=== PATIENT | male | born 1985 | race Caucasian/White ===

== ENCOUNTER 2018-08-01 05:51 | Inpatient (IN) | payer MEDICAID ==
[~2018-08-01] VITALS: Ht 190.5 cm; Wt 98.8 kg
--- NOTE | 2018-08-01 19:35 | NUR ---
RECEIVED VIA STRETCHER ESCORTED BY EMS. ALERT/ORIENTED X4, ABMULATED TO BED WITH STEADY GAIT. DENIES PAIN. 20G IV IN L FA INTACT SL. RR 19 EVEN U/L ON ROOM AIR. VITAL SIGNS: B/P IN RT ARM 184/120; LT ARM 186/126; HR 118, RR 19; 02 SAT 97%. REQUESTED SOME ICE WATER AND ANOTHER BLANKET. STATED HE WAS COLD. ORIENTED TO ROOM AND CALL LIGHT.
[2018-08-01] MEDS ORDERED: METOPROLOL TART50 MG PO (20:30)
--- NOTE | 2018-08-01 20:45 | NUR ---
CALLED DR VILLA FOR ORDERS.
--- NOTE | 2018-08-01 21:28 | NUR ---
ADMIN B/P PO MEDS ORDERED BY DR VILLA. NO OTHER NEEDS VOICED. FAMILY MEMBER PRESENT IN ROOM.
--- NOTE | 2018-08-01 21:35 | NUR ---
OBTAINED URINE SAMPLE FOR LAB ORDERED.
[2018-08-01 22:10] VITALS: BP 184/120
[2018-08-01 23:54] VITALS: BP 152/89
--- NOTE | 2018-08-02 01:40 | NUR ---
AWAKE. REQUESTED A SODA.
[2018-08-02 04:09] VITALS: BP 161/93
[2018-08-02 04:23] VITALS: BP 186/126; BMI 30.8
[2018-08-02] MEDS ORDERED: NORVASC10 MG PO (04:38)
[2018-08-02] MEDS ORDERED: HYDRALAZINE HC100 MG PO (04:39)
--- NOTE | 2018-08-02 05:00 | NUR ---
AMBULATING IN HALLWAY WITH FAMILY MEMBER. DENIES ANY NEEDS OR DISCOMFORTS.
[2018-08-02 06:52] LABS: BASOPHILS 0.4 % (0-2); EOSINOPHILS 5.5 % (0-7); HEMATOCRIT 28.5 % (42.0-54.0); HEMOGLOBIN 9.8 g/dL (13.5-17.5); IMMATURE GRANULOCYTES 1.3 % (0-5); LYMPHOCYTES 7.7 % (15-50); MCH 27.5 pg (26.0-34.0); MCHC 34.4 g/dL (31.0-37.0); MCV 80.1 fL (80.0-100.0); MEAN PLATELET VOLUME 10.7 fL (7.4-10.4); MONOCYTES 13.2 % (2-11); NEUTROPHILS 71.9 % (40-80); PLATELET COUNT 214 10x3/uL (130-400); RBC 3.56 10x6/uL (4.20-6.10); RDW 13.5 % (11.5-14.5); WBC 11.9 10x3/uL (4.8-10.8)
[2018-08-02 07:31] LABS: ALBUMIN 2.2 g/dL (3.4-5.0); ANION GAP 21.1 mmol/L (8-16); BILIRUBIN - TOTAL 0.47 mg/dL (0.2-1.3); CALCIUM 7.8 mg/dL (8.5-10.1); CARBON DIOXIDE 15.1 mmol/L (21.0-32.0); CREATININE - SERUM 7.6 mg/dL (0.6-1.3); POTASSIUM - SERUM 3.2 mmol/L (3.5-5.1); URIC ACID 11.8 mg/dL (2.6-7.2)
--- NOTE | 2018-08-02 08:43 | NUR ---
RESUMING PT CARE, PT IS LAYING IN BED ALERT AND ORIENTED X4, BED IS IN LOWEST POSITION WITH RAILS UP X1, CALL LIGHT IN REACH. WILL CONTINUE TO MONITOR AND FOLLOW PLAN OF CARE.
--- NOTE | 2018-08-02 09:46 | NUR ---
I have reviewed this patient and I concur with the Shift Assessment completed by the Licensed Practical Nurse today this shift.
[2018-08-02 11:25] LABS: % SATURATION 14 % (15-55); IRON 22 ug/dl (35-150); TOTAL IRON BIND CAPACITY 155 ug/dl (260-445); UNSAT IRON BIND CAPACITY 133 ug/dl (150-375)
[2018-08-02 15:52] VITALS: BP 157/106
--- NOTE | 2018-08-02 19:15 | NUR ---
ALERT/ORIENTED X4. DENIES PAIN OR ANY NEEDS. RR 20 EVEN U/L. IV IN L FA INTACT SL. BED IS LOW WITH CL IN REACH.
--- NOTE | 2018-08-02 21:40 | NUR ---
DR VILLA IN ROOM TALKING TO PATIENT AND HIS MOTHER.
[2018-08-02 21:53] VITALS: BP 186/111
--- NOTE | 2018-08-02 22:40 | NUR ---
RETURNED TO ROOM AFTER APPROX 1 HOUR. STATED HE AND HIS MOTHER WERE VERY UPSET ABOUT BEING INFORMED ABOUT THE STATE OF HIS KIDNEYS BY DR VILLA. ADMIN HIS SCHED PO MEDS.
[2018-08-03] VITALS: BP 154/90
[2018-08-03 01:45] LABS: CREATININE - URINE 99.8 mg/dL (30-125); PROTEIN - URINE 233.5 mg/dL (0.0-11.9)
[2018-08-03 01:49] LABS: UDS - AMPHET NEGATIVE QUAL (NEGATIVE); UDS - BARB NEGATIVE QUAL (NEGATIVE); UDS - BENZO NEGATIVE QUAL (NEGATIVE); UDS - COCAINE NEGATIVE QUAL (NEGATIVE); UDS - OPIATE NEGATIVE QUAL (NEGATIVE); UDS - PCP NEGATIVE QUAL (NEGATIVE); UDS - THC NEGATIVE QUAL (NEGATIVE)
--- NOTE | 2018-08-03 04:00 | NUR ---
PLACED BACK ON TELEMETRY AFTER SHOWER. DENIES ANY NEEDS.
[2018-08-03 05:47] VITALS: BP 158/85
[2018-08-03 06:12] LABS: BASOPHILS 0.3 % (0-2); EOSINOPHILS 4.5 % (0-7); HEMOGLOBIN 9.3 g/dL (13.5-17.5); IMMATURE GRANULOCYTES 0.9 % (0-5); LYMPHOCYTES 6.2 % (15-50); MCH 27.4 pg (26.0-34.0); MCHC 34.4 g/dL (31.0-37.0); MCV 79.6 fL (80.0-100.0); MEAN PLATELET VOLUME 10.5 fL (7.4-10.4); MONOCYTES 12.3 % (2-11); NEUTROPHILS 75.8 % (40-80); PLATELET COUNT 210 10x3/uL (130-400); RBC 3.39 10x6/uL (4.20-6.10); RDW 13.3 % (11.5-14.5)
[2018-08-03 06:28] LABS: ANION GAP 20.6 mmol/L (8-16); CALCIUM 7.9 mg/dL (8.5-10.1); CARBON DIOXIDE 15.8 mmol/L (21.0-32.0); CREATININE - SERUM 8.3 mg/dL (0.6-1.3); POTASSIUM - SERUM 3.4 mmol/L (3.5-5.1)
[2018-08-03 10:19] LABS: FOLATE (FOLIC ACID) - SERUM 3.5 ng/mL (>3.0)
--- NOTE | 2018-08-03 10:45 | NUR ---
PT REPORTS THAT SALINE LOCK IN LEFT ARM HAS NOT BEEN USED SINCE TUESDAY. BLOOD NOTED IN J LOOP. IV DCD WITH CATH TIP INTACT PER MAX OMAIRA NPC ADNS. 20G PLACED IN LEFT FOREARM PER MAX OMAIRA. PT TOLERATED WELL. NS HUNG AT 10ML/HR IN ORDER TO INFUSE SECONDARY MEDS.
[2018-08-03 15:34] VITALS: BP 149/97
--- NOTE | 2018-08-03 19:49 | NUR ---
IV AT 50....NO NOTE ON WHY ITS NOT RUNNING AT 125...LCTA SKIN WARM AND DRY INCRESED IV RATE TO 125/HR
[2018-08-03 20:00] VITALS: BP 195/109
[2018-08-03 21:08] LABS: APPEARANCE CLEAR (CLEAR); BILIRUBIN NEGATIVE (NEGATIVE); COLOR YELLOW (YELLOW); GLUCOSE NEGATIVE (NEGATIVE); KETONE NEGATIVE (NEGATIVE); NITRITE NEGATIVE (NEGATIVE); PROTEIN 1+ mg/dL (NEGATIVE); SPECIFIC GRAVITY 1.015 (1.005-1.020); UROBILINOGEN NORMAL (NORMAL)
[2018-08-04] VITALS: BP 159/93
[2018-08-04 04:00] VITALS: BP 158/88
--- NOTE | 2018-08-04 04:41 | NUR ---
I have reviewed this patient and I concur with the Shift Assessment completed by the Licensed Practical Nurse today this shift.
[2018-08-04 07:29] LABS: HEPATITIS C ANTIBODY <0.1 S/CO RAT (0.0-0.9)
[2018-08-04 08:05] LABS: ANION GAP 19.4 mmol/L (8-16); CALCIUM 8.1 mg/dL (8.5-10.1); CARBON DIOXIDE 17.8 mmol/L (21.0-32.0); POTASSIUM - SERUM 3.2 mmol/L (3.5-5.1)
--- NOTE | 2018-08-04 08:30 | NUR ---
PT RESTING IN BED. SHIFT ASSESSMENT PERFORMED. AM MEDICATIONS GIVEN ORDERED. DENIES PAIN AT THIS TIME, DENIES ANY OTHER NEEDS AT THIS TIME, WILL CONT TO FOLLOW PLAN OF CARE
[2018-08-04 08:37] LABS: BASOPHILS 0.3 % (0-2); EOSINOPHILS 7.8 % (0-7); HEMATOCRIT 25.6 % (42.0-54.0); HEMOGLOBIN 8.9 g/dL (13.5-17.5); IMMATURE GRANULOCYTES 0.8 % (0-5); LYMPHOCYTES 11.3 % (15-50); MCH 27.7 pg (26.0-34.0); MCHC 34.8 g/dL (31.0-37.0); MCV 79.8 fL (80.0-100.0); MEAN PLATELET VOLUME 11.2 fL (7.4-10.4); MONOCYTES 5.9 % (2-11); NEUTROPHILS 73.9 % (40-80); PLATELET COUNT 206 10x3/uL (130-400); RBC 3.21 10x6/uL (4.20-6.10); RDW 13.3 % (11.5-14.5); WBC 11.6 10x3/uL (4.8-10.8)
[2018-08-04 10:21] VITALS: BP 148/45
[2018-08-04 11:30] LABS: MAGNESIUM - SERUM 2.3 mg/dL (1.8-2.4); PHOSPHOROUS 5.9 mg/dL (2.5-4.9)
--- NOTE | 2018-08-04 15:13 | EC ---
PATIENT:TEREZA SCHOFIELD DATE OF SERVICE: 08/01/18 SEX: M MEDICAL RECORD: [id number] DATE OF : [birth year] LOCATION:D.M2 D.213 AGE OF PATIENT: 32 ADMISSION DATE: 08/01/18 REFERRING PHYSICIAN: INTERPRETING PHYSICIAN: ARIA ZUNIGA MD ECHOCARDIOGRAM REPORT ECHO CHARGES 4 ECHO COMPLETE Date: 08/02/18 CLINICAL DIAGNOSIS: CHF ECHOCARDIOGRAPHIC MEASUREMENTS (adult normal given) AC root (d.<3.7cm) 3.0 cm LV Septum d (<1.2 cm> 1.3 cm Valve Excursion 2.2 cm LV Septum (systole) 1.8 cm Left Atria (s.<4.0cm> 3.7 cm LVPW d(<1.2cm) 1.3 cm RV (d.<2.3cm) 2.5 cm LVPW (sytole) 1.9 cm LV diastole(<5.6CM) 5.0 cm MV E-F(>70mm/sec) cm LV systole 3.6 cm LVOT Diameter 2.0 cm MV exc.(>10mm) cm Est.ejection fraction (50-75%) % DOPPLER: LVIT cm/sec A 69.0 cm/sec E 140 cm/sec LA cm/sec RVSP 66.3 mmHg LVOT 112 cm/sec AOP1/2T m/s Asc. Ao 173 cm/sec RVOT 81.0 cm/sec RA cm/sec PA 119 cm/sec AV Gradient Peak 12.0 mmHg AV Mean 4.9 mmHg AV Area 2.4 cm MV Gradient Peak 120 mmHg MV Mean 3.3 mmHg MV Area cm COMMENTS: Melter Loader: Ronald MORALESOE Ware Dresser: 1 Dr. Zuniga TAPE# PACS Pericardial Effusion N DATE OF SERVICE: 08/02/2018 PROCEDURE: Echocardiogram. FINDINGS: 1. Left ventricular chamber size is within normal limits. Left ventricular systolic function is normal. Overall ejection fraction estimated at 60%. 2. Left atrium is within normal limits at 3.7 cm. Right atrium and right ventricular chamber sizes are mildly dilated. 3. Valvular structures have normal structure and motion. ECHOCARDIOGRAM REPORT [id number] TEREZA SCHOFIELD 4. Doppler interrogation reveals moderate mitral regurgitation, moderate tricuspid regurgitation, no other valvular insufficiency or stenosis. Pulmonary systolic pressure is elevated estimated 66 mmHg. 5. No evidence of pericardial effusion or left ventricular thrombus. TRANSINT:[id number] Voice Confirmation ID: [id number] DOCUMENT ID: [id number] ARIA ZUNIGA MD at 1513 CC: [id number] DICTATION DATE: 08/02/18 1547 REDUCING SALON ATTENDANT: 08/02/18 1557 ADM IN [facility] [address] [id number]
[2018-08-04 16:45] VITALS: BP 162/90
--- NOTE | 2018-08-04 18:32 | NUR ---
SPEAKING WITH PT, ADVISED PT THAT HE WILL NEED TEMPORARY ACCESS FOR DIALYSIS. ORDER RECIEVED TO CONTACT IVR TO PLACE ACCESS.
[2018-08-04 21:30] VITALS: BP 171/99
[2018-08-04 23:55] VITALS: BP 160/94
[2018-08-05] VITALS (10 sets, daily range): BP systolic 144–200; BP diastolic 87–116
--- NOTE | 2018-08-05 00:34 | NUR ---
PT COMPLAINING OF SHORTNESS OF BREATH. O2 SAT-88%. PLACED PT ON 2L NC. CALLED RESPIRATORY KATHERINE RT BUMPED PT UP TO 4L. PT HAS FINE CRACKLES IN LUNGS. STOPPED IV FLUIDS. PT SITTING UP ON SIDE OF BED TAKING DEEP BREATHS. MOTHER AT BEDSIDE. WILL CONTINUE TO MONITOR.
--- NOTE | 2018-08-05 01:00 | NUR ---
CALLED DR. VILLA REGARDING PT O2 AND SOB. STAT ORDERS FOR CHEST X-RAY AND PRO-BNP ORDERED. PT SITTING ON SIDE OF BED TRIPOD BREATHING. PT BEHAVIOR ANXIOUS. MOTHER AT BEDSIDE. WILL CONTINUE TO MONITOR.
[2018-08-05 01:38] LABS: BASOPHILS 0.3 % (0-2); EOSINOPHILS 5.6 % (0-7); HEMATOCRIT 27.8 % (42.0-54.0); HEMOGLOBIN 9.6 g/dL (13.5-17.5); IMMATURE GRANULOCYTES 1.1 % (0-5); LYMPHOCYTES 10.9 % (15-50); MCH 27.6 pg (26.0-34.0); MCHC 34.5 g/dL (31.0-37.0); MCV 79.9 fL (80.0-100.0); MEAN PLATELET VOLUME 10.5 fL (7.4-10.4); MONOCYTES 6.1 % (2-11); PLATELET COUNT 213 10x3/uL (130-400); RBC 3.48 10x6/uL (4.20-6.10); RDW 13.3 % (11.5-14.5); WBC 12.8 10x3/uL (4.8-10.8)
[2018-08-05 01:42] LABS: INR 1.25 (0.85-1.17); PROTIME 15.2 SECONDS (11.6-15.0)
[2018-08-05 01:53] LABS: ANION GAP 16.5 mmol/L (8-16); CARBON DIOXIDE 21.1 mmol/L (21.0-32.0); CREATININE - SERUM 9.3 mg/dL (0.6-1.3); POTASSIUM - SERUM 3.6 mmol/L (3.5-5.1)
--- NOTE | 2018-08-05 03:19 | NUR ---
PT RESTING COMFORTABLY WITH EYES CLOSED. RR EVEN AND UNLABORED. NO S/S OF DISTRESS. BED LOW, CALL LIGHT WITHIN REACH, MOTHER AT BEDSIDE. WILL CONTINUE TO MONITOR
--- NOTE | 2018-08-05 07:05 | NUR ---
PER JG SPENCER APRN ORDER ABG'S. ORDER NOTED.
--- NOTE | 2018-08-05 08:31 | NUR ---
RESUMING PT CARE, PT SITTING UP IN BED ALERT AND ORIENTED X4, CALL LIGHT IN REACH. IS SCHEDULED FOR DIALYSIS TODAY. MOTHER IS AT BEDSIDE. WILL CONTINUE TO MONITOR AND FOLLOW PLAN OF CARE.
--- NOTE | 2018-08-05 08:53 | NUR ---
SPOKE WITH MARY LEBRON APRN AND SHE TOLD ME TO HOLD ALL MORNING MEDS DUE TO PT HAVING FIRST DIALYSIS TODAY. MEDS HELD. CALL LIGHT IN REACH, WILL CONTINUE TO MONITOR.
--- NOTE | 2018-08-05 09:37 | NUR ---
I have reviewed this patient and I concur with the Shift Assessment completed by the Licensed Practical Nurse today this shift.
--- NOTE | 2018-08-05 14:47 | NUR ---
PT TAKEN FROM DIALYSIS TO CT, CT IS TO TAKE PT TO ROOM CV02 WHEN DONE.
--- NOTE | 2018-08-05 15:30 | NUR ---
PATIENT FROM ROOM 2137 PER WHEELCHAIR. COMES FROM RADIOLOGY POST VQ SCAN. AWAKE AND ALERT SKIN WARM AND DRY. AMBULATED TO HOSPITAL BED. IV LEFT FOREARM SALINE LOCKED. DENIES ANY PAIN OR SHORTNESS OF BREATH. MOTHER HERE. DR. BLANCO NOTIFIED OF CONSULT.
--- NOTE | 2018-08-05 17:00 | NUR ---
SUPER TRAY SERVED ATE WELL. NO SHORTNESS OF BREATH WHILE EATING. DR. BLANCO HERE
--- NOTE | 2018-08-05 17:30 | NUR ---
DR. VILLA CALLED ABOUT BLOOD PRESSURE OVER 190/110. ORDERS RECEIVED FOR CLONIDINE 0.2 MG PO NOW.
--- NOTE | 2018-08-05 18:30 | NUR ---
AMBULATED TO BATHROOM. VOIDED. IV PULLED OUT. RESTARTED IN RIGHT WRIST WITH 20 GAUGE X 1 STICK. INFUSING WITH D51/2NS WITH NA BICAR AT 50 ML HOUR. PATIENT TOLERATED WELL.
--- NOTE | 2018-08-05 19:00 | NUR ---
ASSESSMENT DONE SEE FLOW SHEET. INDEPENDENT BED BATH GIVEN. COMPLETE LINEN CHANGE. IV SITES FLUSED. VSS NO SINGS OF ACUTE DISTRESS NOTED.
--- NOTE | 2018-08-05 22:00 | NUR ---
PT DESATING TO 86. NC APPLIED 4LPM. O2 SAT 94. PT COMPLAINS OF SOB. WILL CONTINUE TO MONITOR.
--- NOTE | 2018-08-05 23:00 | NUR ---
REASSESSMENT DONE SEE FLOW SHEET. PT LUNGS SOUNDS BILATERALLY CRACKLES. NC 4LPM. DR HALLIE IRELAND WILL CONTINUE TO MONITOR.
[2018-08-06] VITALS (24 sets, daily range): BP systolic 126–169; BP diastolic 75–98
--- NOTE | 2018-08-06 01:00 | NUR ---
PT O2 SAT 88%. HIGH FLOW NC APPLIED 8LPM. DR HALLIE IRELAND. WILL CONTINUE TO MONITOR.
--- NOTE | 2018-08-06 03:00 | NUR ---
REASSESSMENT DONE SEE FLOW SHEET. VSS WILL CONTINUE TO MONITOR.
--- NOTE | 2018-08-06 05:00 | NUR ---
IO COLLECTED. DAILY WEIGHT COLLECTED. BLOOD DRAWN WATER PROVIDED. VSS.
[2018-08-06 05:26] LABS: BASOPHILS 0.4 % (0-2); EOSINOPHILS 5.4 % (0-7); HEMATOCRIT 23.9 % (42.0-54.0); HEMOGLOBIN 8.1 g/dL (13.5-17.5); IMMATURE GRANULOCYTES 0.8 % (0-5); MCH 27.2 pg (26.0-34.0); MCHC 33.9 g/dL (31.0-37.0); MCV 80.2 fL (80.0-100.0); MONOCYTES 15.3 % (2-11); NEUTROPHILS 70.1 % (40-80); RBC 2.98 10x6/uL (4.20-6.10); RDW 13.4 % (11.5-14.5); WBC 10.6 10x3/uL (4.8-10.8)
[2018-08-06 05:27] LABS: PLATELET COUNT 170 10x3/uL (130-400)
[2018-08-06 05:46] LABS: ANION GAP 15.2 mmol/L (8-16); CALCIUM 7.6 mg/dL (8.5-10.1); CARBON DIOXIDE 25.3 mmol/L (21.0-32.0); CREATININE - SERUM 7.7 mg/dL (0.6-1.3); POTASSIUM - SERUM 3.5 mmol/L (3.5-5.1)
--- NOTE | 2018-08-06 14:14 | NUR ---
SPO2 98% ON 7 LPM HFC. DECREASED TO 4LPM HFC.
--- NOTE | 2018-08-06 14:14 | NUR ---
SPO2 96% ON 4LPM HFC. DECREASED TO 2 LPM HFC.
[2018-08-07] VITALS (21 sets, daily range): BP systolic 119–152; BP diastolic 67–104
[2018-08-07 04:58] LABS: BASOPHILS 0.3 % (0-2); EOSINOPHILS 7.2 % (0-7); HEMATOCRIT 24.7 % (42.0-54.0); HEMOGLOBIN 8.3 g/dL (13.5-17.5); IMMATURE GRANULOCYTES 0.5 % (0-5); LYMPHOCYTES 9.1 % (15-50); MCH 26.9 pg (26.0-34.0); MCHC 33.6 g/dL (31.0-37.0); MCV 80.2 fL (80.0-100.0); MEAN PLATELET VOLUME 10.7 fL (7.4-10.4); MONOCYTES 11.5 % (2-11); NEUTROPHILS 71.4 % (40-80); PLATELET COUNT 178 10x3/uL (130-400); RBC 3.08 10x6/uL (4.20-6.10); RDW 13.4 % (11.5-14.5); WBC 9.7 10x3/uL (4.8-10.8)
[2018-08-07 05:09] LABS: ANION GAP 15.1 mmol/L (8-16); CARBON DIOXIDE 25.4 mmol/L (21.0-32.0); CREATININE - SERUM 9.1 mg/dL (0.6-1.3); MAGNESIUM - SERUM 2.2 mg/dL (1.8-2.4); PHOSPHOROUS 6.8 mg/dL (2.5-4.9); POTASSIUM - SERUM 3.5 mmol/L (3.5-5.1)
--- NOTE | 2018-08-07 08:20 | NUR ---
PT TO IMAGING FOR CT
--- NOTE | 2018-08-07 08:59 | NUR ---
Nutrition follow up: Pt is NPO today for biopsy Previously on Renal diet with 80,50,25% intake of meals yesterday Reviewed chart RD following
[2018-08-07 09:10] LABS: INR 1.25 (0.85-1.17); PROTIME 15.1 SECONDS (11.6-15.0)
[2018-08-07 10:11] LABS: ANTI-STREPTOLYSIN O 81.9 IU/mL (0.0-200.0)
--- NOTE | 2018-08-07 12:35 | NUR ---
DIALYSIS NURSE AT BEDSIDE FOR TREATMENT.
--- NOTE | 2018-08-07 15:15 | NUR ---
DIALYSIS COMPLETED. DUE TO LATE TIME OF DAY, RENAL BIOPSY RESCHEDULED TO TOMORROW.
[2018-08-08] VITALS (23 sets, daily range): BP systolic 131–155; BP diastolic 75–99
[2018-08-08 08:32] LABS: BASOPHILS 0.4 % (0-2); EOSINOPHILS 8.4 % (0-7); HEMATOCRIT 29.3 % (42.0-54.0); HEMOGLOBIN 9.9 g/dL (13.5-17.5); IMMATURE GRANULOCYTES 0.3 % (0-5); LYMPHOCYTES 9.3 % (15-50); MCH 27.2 pg (26.0-34.0); MCHC 33.8 g/dL (31.0-37.0); MCV 80.5 fL (80.0-100.0); MEAN PLATELET VOLUME 10.5 fL (7.4-10.4); MONOCYTES 10.3 % (2-11); NEUTROPHILS 71.3 % (40-80); RBC 3.64 10x6/uL (4.20-6.10); RDW 13.3 % (11.5-14.5); WBC 7.8 10x3/uL (4.8-10.8)
[2018-08-08 08:38] LABS: PLATELET COUNT 226 10x3/uL (130-400)
[2018-08-08 08:39] LABS: INR 1.2 (0.85-1.17); PROTIME 14.7 SECONDS (11.6-15.0)
[2018-08-08 11:00] LABS: ACLA - IGG AB <9 GPL U/mL (0-14); ACLA - IGM AB <9 MPL U/mL (0-12)
--- NOTE | 2018-08-08 11:17 | NUR ---
PT RETURNED FROM I.R.
[2018-08-08 13:13] LABS: ANA REFLEX - DIRECT Negative (Negative)
--- NOTE | 2018-08-08 14:44 | NUR ---
DIALYSIS IN PROGRESS. PT DENIES NEEDS. CALL LIGHT IN REACH.
--- NOTE | 2018-08-08 15:27 | NUR ---
REPORT CALLED TO LES ALLEN. PT GOING TO ROOM 2100.
[2018-08-08 15:52] LABS: HEMATOCRIT 28.4 % (42.0-54.0); HEMOGLOBIN 9.6 g/dL (13.5-17.5)
--- NOTE | 2018-08-08 17:11 | NUR ---
RECEIVED PATIENT TO ROOM 2105 AT 1708. PATIENT ALERT/ORIENTED. AMBULATORY. PATIENT BROUGHT OVER VIA WHEELCHAIR. RESP EVEN AND UNLABORED. PATIENT WITH BUMEX INFUSING ORDERED. PATIENT DENIES NEEDS. DENIES PAIN. PATIENTS MOM AT BEDSIDE WITH HIM. PATIENT STATES HE IS EXCITED TO BE OUT OF ICU SO HE CAN WALK AROUND. NO DISTRESS. ORIENTED TO ROOM. CALL LIGHT WITHIN REACH. NO DISTRESS.
--- NOTE | 2018-08-08 18:41 | NUR ---
SITTING IN BED WITH EYES OPEN. ATTENTION TOWARD TELEVISION. CALL LIGHT WITHIN REACH. NO DISTRESS. FOR HD PLACEMENT IN AM.
--- NOTE | 2018-08-08 20:00 | NUR ---
RECIEVED BEDSIDE REPORT. VSS, AAOX4, RR EVEN AND UNLABORED, NO S/S OF RR DISTRESS. PT RESTING IN BED WITH EYES OPEN. FAMILY AT BEDSIDE. ALL MEDS GIVEN AT THIS TIME. PT STATES HE NEEDS SOME AMBIEN TO HELP HIM GO TO SLEEP. AMBIEN PRN GIVEN ALOGNSIDE OTHER MEDS. PT NPO AFTER MIDNIGHT FOR TUNNELED CATHETER PLACEMENT. PT DENIES ANY FURTHER NEEDS FOR COMFORT CARE, WILL CPOC. CL IN REACH, BED IN LOW, SR UP X2.
--- NOTE | 2018-08-09 00:24 | MORECARE ---
CASE MANAGEMENT DISCHARGE SUMMARY PATIENT: TEREZA SCHOFIELD UNIT: [id number] ADM DATE: 08/01/18 AGE: 32 : [birth year] SEX: M ROOM/BED: D.2105 AUTHOR: MIRIAM ALFARO PHYSICIAN: REFERRING PHYSICIAN: BIGG VILLA MD DATE OF SERVICE: 08/09/18 Discharge Plan Patient Name: TEREZA SCHOFIELD [facility] [facility] 1985 Planned Disposition: Home Anticipated Discharge Date: Discharge Date: Expected LOS: Initial Reviewer: [email or web address] Initial Review Date: 08/08/2018 Generated: 08/09/18 1:24 am Patient Name: TREEZA SCHOFIELD Page [id number] at 0024 All edits/amendments must be made on the electronic document DICTATION DATE: 08/09/1822 SAWMILL EQUIPMENT OPERATOR: MARTIN 08/09/1822 RPT#: [id number] DC DATE: STATUS: ADM IN [facility] [address] [place] [address] END OF REPORT
--- NOTE | 2018-08-09 00:31 | MORECARE ---
CASE MANAGEMENT DISCHARGE SUMMARY PATIENT: TEREZA SCHOFIELD UNIT: [id number] ADM DATE: 08/01/18 AGE: 32 : [birth year] SEX: M ROOM/BED: D.2105 AUTHOR: MIRIAM ALFARO PHYSICIAN: REFERRING PHYSICIAN: BIGG VILLA MD DATE OF SERVICE: 08/09/18 Discharge Plan Patient Name: TEREZA SCHOFIELD [facility] : 1985 Planned Disposition: Home Anticipated Discharge Date: Discharge Date: Expected LOS: Initial Reviewer: [email or web address] Initial Review Date: 08/08/2018 Generated: 08/09/18 1:31 am DCPIA - Discharge Planning Initial Assessment Updated by [email or web address]: Catarina Herzog on 08/09/18 12:26 am * Is the patient Alert and Oriented? Yes * How many steps to enter\exit or inside your home? * PCP DEBORAH * Pharmacy [facility] * Preadmission Environment Home with Family * ADLs Independent * Equipment None * List name and contact numbers for known caregivers / representatives who currently or will assist patient after discharge: JULY CHANDU - [facility]- [phone] * Verbal permission to speak to the caregivers and representatives has been obtained from the patient. Yes * Community resources currently utilized None * Additional services required to return to the preadmission environment? No * Can the patient safely return to the preadmission environment? Yes * Has this patient been hospitalized within the prior 30 days at any hospital? No Last DP export: 08/08/18 11:24 p Patient Name: TEREZA SCHOFIELD Page [id number] at 0031 All edits/amendments must be made on the electronic document DICTATION DATE: 08/09/1829 MARKETING ASSISTANT RETAIL DIVISION: MARTIN 08/09/1829 RPT#: [id number] DC DATE: STATUS: ADM IN [facility] [address] [place] [address] END OF REPORT
--- NOTE | 2018-08-09 00:38 | MORECARE ---
CASE MANAGEMENT DISCHARGE SUMMARY PATIENT: TEREZA SCHOFIELD UNIT: [id number] ADM DATE: 08/01/18 AGE: 32 : [birth year] SEX: M ROOM/BED: D.2105 AUTHOR: ANGELINA,DOC PHYSICIAN: REFERRING PHYSICIAN: BIGG VILLA MD DATE OF SERVICE: 08/09/18 Discharge Plan Patient Name: TEREZA SCHOFIELD Facility: [facility]:[place] : 1985 Planned Disposition: Home Anticipated Discharge Date: Discharge Date: Expected LOS: Initial Reviewer: [email or web address] Initial Review Date: 08/08/2018 Generated: 08/09/18 1:38 am Comments DCP- Discharge Planning Updated by [email or web address]: Catarina Herzog on 08/08/18 11:[address] Patient Name: TEREZA SCHOFIELD Admission Status: Elective Accout number: [id number] Admission Date: 08-01-2018 : 1985 Admission Diagnosis:HYPERTENSIVE URGENCY Attending: BIGG VILLA Current LOS: 8 Anticipated DC Date: Planned Disposition: Home Primary Insurance: MEDICAID [place]END[place] Discharge Planning Comments: CM met with patient and his mother(July) at bedside after explaining CM role and obtaining verbal consent. Patient lives at home with his mother July and plans to return there upon discharge. Patient feels this would be a safe discharge. CM discussed availability / needs of home health and medical equipment. Patient has started hemodialysis since admission and will need outpatient hemodialysis set up. Patient is requesting [facility]. Luz Maria Royal (Patient Body Painter) is aware of discharge needs. Patient states he will have his mother drive him home upon discharge. CM will continue to follow and assist as needed with discharge planning / needs. Pharmacy Assistant: Catarina Herzog DCPIA - Discharge Planning Initial Assessment Updated by [email or web address]: Catarina Herzog on 08/09/18 12:26 am * Is the patient Alert and Oriented? Yes * How many steps to enter\exit or inside your home? * PCP DEBORAH * Pharmacy [facility] * Preadmission Environment Home with Family * ADLs Independent * Equipment None * List name and contact numbers for known caregivers / representatives who currently or will assist patient after discharge: JULY CHANDU MUNIZ- [phone] * Verbal permission to speak to the caregivers and representatives has been obtained from the patient. Yes * Community resources currently utilized None * Additional services required to return to the preadmission environment? No * Can the patient safely return to the preadmission environment? Yes * Has this patient been hospitalized within the prior 30 days at any hospital? No Last DP export: 08/08/18 11:31 p Patient Name: TEREZA SCHOFIELD Page [phone] at 0038 All edits/amendments must be made on the electronic document DICTATION DATE: 08/09/1836 [employer] DRIVER: MARTIN 08/09/1836 RPT#: [id number] DC DATE: STATUS: ADM IN [facility] [address] [place] [address] END OF REPORT
[2018-08-09 00:47] VITALS: BP 138/78
[2018-08-09 04:00] VITALS: BP 145/79
[2018-08-09 05:57] LABS: ALBUMIN 2.1 g/dL (3.4-5.0); ANION GAP 14.7 mmol/L (8-16); BILIRUBIN - TOTAL 0.27 mg/dL (0.2-1.3); CALCIUM 7.7 mg/dL (8.5-10.1); CARBON DIOXIDE 26.9 mmol/L (21.0-32.0); POTASSIUM - SERUM 3.6 mmol/L (3.5-5.1); PROTEIN - SERUM 6.1 g/dL (6.4-8.2)
--- NOTE | 2018-08-09 08:11 | MORECARE ---
CASE MANAGEMENT DISCHARGE SUMMARY PATIENT: TEREZA SCHOFIELD UNIT: [id number] ADM DATE: 08/01/18 AGE: 32 : 89 SEX: M ROOM/BED: D.2105 AUTHOR: ANGELINA,DOC PHYSICIAN: REFERRING PHYSICIAN: BIGG VILLA MD DATE OF SERVICE: 08/09/18 Discharge Plan Patient Name: TEREZA SCHOFIELD Facility: [facility]:[place] : 1985 Planned Disposition: Home Anticipated Discharge Date: Discharge Date: Expected LOS: Initial Reviewer: [email or web address] Initial Review Date: 08/08/2018 Generated: 08/09/18 9:10 am Comments DCP- Discharge Planning Updated by [email or web address]: Catarina Herzog on 08/08/18 11:[address] Patient Name: TEREZA SCHOFIELD Admission Status: Elective Accout number: [id number] Admission Date: 08-01-2018 : 1985 Admission Diagnosis:HYPERTENSIVE URGENCY Attending: BIGG VILLA Current LOS: 8 Anticipated DC Date: Planned Disposition: Home Primary Insurance: MEDICAID [place] PENDING Discharge Planning Comments: CM met with patient and his mother(July) at bedside after explaining CM role and obtaining verbal consent. Patient lives at home with his mother July and plans to return there upon discharge. Patient feels this would be a safe discharge. CM discussed availability / needs of home health and medical equipment. Patient has started hemodialysis since admission and will need outpatient hemodialysis set up. Patient is requesting [facility]. Luz Maria Royal (Patient Instructor Trainer Canine Service) is aware of discharge needs. Patient states he will have his mother drive him home upon discharge. CM will continue to follow and assist as needed with discharge planning / needs. Sample Puller: Catarina Herzog DCPIA - Discharge Planning Initial Assessment Updated by [email or web address]: Catarina Herzog on 08/09/18 12:26 am * Is the patient Alert and Oriented? Yes * How many steps to enter\exit or inside your home? * PCP DEBORAH * Pharmacy [facility] * Preadmission Environment Home with Family * ADLs Independent * Equipment None * List name and contact numbers for known caregivers / representatives who currently or will assist patient after discharge: JULY CHANDU MUNIZ- [phone] * Verbal permission to speak to the caregivers and representatives has been obtained from the patient. Yes * Community resources currently utilized None * Additional services required to return to the preadmission environment? No * Can the patient safely return to the preadmission environment? Yes * Has this patient been hospitalized within the prior 30 days at any hospital? No Last DP export: 08/08/18 11:38 p Patient Name: TEREZA SCHOFIELD Page 29845 at 0811 All edits/amendments must be made on the electronic document DICTATION DATE: 08/09/18809 ISSUING OPERATOR: MARTIN 08/09/18809 RPT#: [id number] DC DATE: STATUS: ADM IN [facility] [address] [place] [address] END OF REPORT
[2018-08-09 08:16] LABS: BASOPHILS 0.3 % (0-2); EOSINOPHILS 9.7 % (0-7); HEMATOCRIT 27.7 % (42.0-54.0); HEMOGLOBIN 9.2 g/dL (13.5-17.5); IMMATURE GRANULOCYTES 0.3 % (0-5); LYMPHOCYTES 13.9 % (15-50); MCH 26.9 pg (26.0-34.0); MCHC 33.2 g/dL (31.0-37.0); MEAN PLATELET VOLUME 10.9 fL (7.4-10.4); MONOCYTES 11.4 % (2-11); NEUTROPHILS 64.4 % (40-80); PLATELET COUNT 220 10x3/uL (130-400); RBC 3.42 10x6/uL (4.20-6.10); RDW 13.2 % (11.5-14.5); WBC 7.1 10x3/uL (4.8-10.8)
--- NOTE | 2018-08-09 08:41 | NUR ---
TO DIALYSIS VIA W/C.
[2018-08-09 09:14] LABS: ANTI-GLOMERULAR BASMENT MEMBRN 4 units (0-20)
[2018-08-09 12:42] VITALS: Ht 190.5 cm; Wt 98.8 kg
--- NOTE | 2018-08-09 13:08 | NUR ---
Nutrition follow-up: Diet: Renal with ~60% average intake of meals Pt currently NPO for hempsplit placement labs reviewed Wt: 217# RDN following.
[2018-08-09 15:52] VITALS: BP 134/85
[2018-08-09 16:43] VITALS: BP 144/85
--- NOTE | 2018-08-09 17:05 | NUR ---
I have reviewed this patient and I concur with the Shift Assessment completed by the Licensed Practical Nurse today this shift.
[2018-08-09 20:00] VITALS: BP 147/72
--- NOTE | 2018-08-09 20:13 | NUR ---
RECIEVE BEDSIDE REPORT. ROUNDS COMPLETED. VSS, AAOX4. RR EVEN UNLABORED. SBP 140'S. ASSESSED PT R.CHEST HEMIPLIT SITE, DRESSING C/D/. FAMILY AT BEDSIDE. PT DENEIS ANY FURTHER NEEDS AT THIS TIME. STATE PAIN 06/04. WILL CPOC. CL IN REACH, BED IN LOW, SR UP X2.
[2018-08-10] VITALS: BP 122/66
[2018-08-10 04:00] VITALS: BP 139/72
[2018-08-10 07:29] VITALS: BP 142/86
[2018-08-10 08:32] LABS: BASOPHILS 0.6 % (0-2); EOSINOPHILS 0.7 % (0-7); HEMATOCRIT 26.2 % (42.0-54.0); HEMOGLOBIN 8.7 g/dL (13.5-17.5); IMMATURE GRANULOCYTES 0.1 % (0-5); LYMPHOCYTES 16.1 % (15-50); MCH 26.6 pg (26.0-34.0); MCHC 33.2 g/dL (31.0-37.0); MCV 80.1 fL (80.0-100.0); MEAN PLATELET VOLUME 10.7 fL (7.4-10.4); MONOCYTES 10.2 % (2-11); NEUTROPHILS 72.3 % (40-80); PLATELET COUNT 203 10x3/uL (130-400); RBC 3.27 10x6/uL (4.20-6.10); RDW 12.8 % (11.5-14.5); WBC 6.8 10x3/uL (4.8-10.8)
--- NOTE | 2018-08-10 08:39 | NUR ---
RESUMING PT CARE, PT IS ALERT AND ORIENTED X4, SITTING UP IN BED ASKING TO TAKE A SHOWER. REAL ESTATE ACCOUNTANT IS GETTING HIM READY FOR SHOWER AT THIS TIME. CALL LIGHT IN REACH, WILL CONTINUE TO MONITOR AND FOLLOW PLAN OF CARE.
[2018-08-10 08:43] LABS: ALBUMIN 2.4 g/dL (3.4-5.0); ANION GAP 17.3 mmol/L (8-16); BILIRUBIN - TOTAL 0.13 mg/dL (0.2-1.3); CALCIUM 7.9 mg/dL (8.5-10.1); CARBON DIOXIDE 24.6 mmol/L (21.0-32.0); CREATININE - SERUM 8.1 mg/dL (0.6-1.3); POTASSIUM - SERUM 3.9 mmol/L (3.5-5.1); PROTEIN - SERUM 6.3 g/dL (6.4-8.2)
--- NOTE | 2018-08-10 09:36 | NUR ---
PT TAKEN TO DIALYSIS
--- NOTE | 2018-08-10 11:52 | MORECARE ---
CASE MANAGEMENT DISCHARGE SUMMARY PATIENT: TEREZA SCHOFIELD UNIT: [id number] ADM DATE: 08/01/18 AGE: 32 : 89 SEX: M ROOM/BED: D.2107 AUTHOR: ANGELINA,DOC PHYSICIAN: REFERRING PHYSICIAN: BIGG VILLA MD DATE OF SERVICE: 08/10/18 Discharge Plan Patient Name: TEREZA SCHOFIELD Facility: [facility]:[place] : 1985 Planned Disposition: Home Anticipated Discharge Date: Discharge Date: Expected LOS: Initial Reviewer: [email or web address] Initial Review Date: 08/08/2018 Generated: 08/10/18 12:52 pm Comments DCP- Discharge Planning Updated by [email or web address]: Audra Quevedo on 08/10/18 10:[address] I HAVE SPOKE WITH LUZ MARIA SANCHES, [facility] COORDINATOR, TO SEE WHERE WE WERE WITH PLACEMENT WITH THIS PATIENT. REFERRAL IS STILL OUT. WILL CONTINUE TO FOLLOW UP IN REGARDS TO PLACEMENT. DCP- Discharge Planning Updated by [email or web address]: Catarina Herzog on 08/08/18 11:[address] Patient Name: TEREZA SCHOFIELD Admission Status: Elective Accout number: [id number] Admission Date: 08-01-2018 : 1985 Admission Diagnosis:HYPERTENSIVE URGENCY Attending: BIGG VILLA Current LOS: 8 Anticipated DC Date: Planned Disposition: Home Primary Insurance: MEDICAID [place] PENDING Discharge Planning Comments: CM met with patient and his mother(July) at bedside after explaining CM role and obtaining verbal consent. Patient lives at home with his mother July and plans to return there upon discharge. Patient feels this would be a safe discharge. CM discussed availability / needs of home health and medical equipment. Patient has started hemodialysis since admission and will need outpatient hemodialysis set up. Patient is requesting [facility]. Luz Maria Sanches (Patient Motor Mechanic) is aware of discharge needs. Patient states he will have his mother drive him home upon discharge. CM will continue to follow and assist as needed with discharge planning / needs. Fire Crew Specialist: Catarina Herzog DCPIA - Discharge Planning Initial Assessment Updated by [email or web address]: Catarina Herzog on 08/09/18 12:26 am * Is the patient Alert and Oriented? Yes * How many steps to enter\exit or inside your home? * PCP DEBORAH * Pharmacy [facility] * Preadmission Environment Home with Family * ADLs Independent * Equipment None * List name and contact numbers for known caregivers / representatives who currently or will assist patient after discharge: JULY CHANDU MUNIZ- [phone] * Verbal permission to speak to the caregivers and representatives has been obtained from the patient. Yes * Community resources currently utilized None * Additional services required to return to the preadmission environment? No * Can the patient safely return to the preadmission environment? Yes * Has this patient been hospitalized within the prior 30 days at any hospital? No Last DP export: 08/09/18 7:10 a Patient Name: TEREZA SCHOFIELD Page 27411 at 1152 All edits/amendments must be made on the electronic document DICTATION DATE: 08/10/18 1152 WORM PACKER: MARTIN 08/10/18 1152 RPT#: [id number] DC DATE: STATUS: ADM IN [facility] [address] [place] [address] END OF REPORT
[2018-08-10 12:11] LABS: ANCA - ANTIMYELOPEROXIDASE <9.0 U/mL (0.0-9.0); ANCA - ANTIPROTEINASE 3 <3.5 U/mL (0.0-3.5); ANCA - ATYPICAL <1:20 titer (Neg:<1:20); ANCA - CYTOPLASMIC <1:20 titer (Neg:<1:20); ANCA - PERINUCLEAR <1:20 titer (Neg:<1:20)
--- NOTE | 2018-08-10 12:39 | MORECARE ---
CASE MANAGEMENT DISCHARGE SUMMARY PATIENT: TEREZA SCHOFIELD UNIT: [id number] ADM DATE: 08/01/18 AGE: 32 : 89 SEX: M ROOM/BED: D.2105 AUTHOR: ANGELINA,DOC PHYSICIAN: REFERRING PHYSICIAN: BIGG VILLA MD DATE OF SERVICE: 08/10/18 Discharge Plan Patient Name: TEREZA SCHOFIELD Facility: [facility]:[place] : 1985 Planned Disposition: Home Anticipated Discharge Date: Discharge Date: Expected LOS: Initial Reviewer: [email or web address] Initial Review Date: 08/08/2018 Generated: 08/10/18 1:39 pm Comments DCP- Discharge Planning Updated by [email or web address]: Audra Quevedo on 08/10/18 11:[address] SPOKE WITH LUZ MARIA SANCHES, DIALYSIS COORDINATOR, AND SHE STATED THAT THE PATIENT HAS BEEN ACCEPTED BY DR ESPINAL OUT OF [place] FOR A SCHEDULE WITH A 1400 ARRIVAL TIME FOR 1430 CHAIR TIME AT [facility]. PHONE NUMBER [phone]. PATIENT CAN START ON Tuesday08/14/18. DCP- Discharge Planning Updated by [email or web address]: Audra Quevedo on 08/10/18 10:[address] I HAVE SPOKE WITH LUZ MARIA SANCHES, DAVITA COORDINATOR, TO SEE WHERE WE WERE WITH PLACEMENT WITH THIS PATIENT. REFERRAL IS STILL OUT. WILL CONTINUE TO FOLLOW UP IN REGARDS TO PLACEMENT. DCP- Discharge Planning Updated by [email or web address]: Catarina Herzog on 08/08/18 11:[address] Patient Name: TEREZA SCHOFIELD Admission Status: Elective Accout number: [id number] Admission Date: 08-01-2018 : 1985 Admission Diagnosis:HYPERTENSIVE URGENCY Attending: BIGG VILLA Current LOS: 8 Anticipated DC Date: Planned Disposition: Home Primary Insurance: MEDICAID [place] PENDING Discharge Planning Comments: CM met with patient and his mother(July) at bedside after explaining CM role and obtaining verbal consent. Patient lives at home with his mother July and plans to return there upon discharge. Patient feels this would be a safe discharge. CM discussed availability / needs of home health and medical equipment. Patient has started hemodialysis since admission and will need outpatient hemodialysis set up. Patient is requesting [facility]. Luz Maria Sanches (Patient Registered Nurse Cardiovascular [facility]) is aware of discharge needs. Patient states he will have his mother drive him home upon discharge. CM will continue to follow and assist as needed with discharge planning / needs. Head Cd Reactor Operator: Catarina Velázquezr DCPIA - Discharge Planning Initial Assessment Updated by [email or web address]: Catarina Herzog on 08/09/18 12:26 am * Is the patient Alert and Oriented? Yes * How many steps to enter\exit or inside your home? * PCP DEBORAH * Pharmacy [facility] * Preadmission Environment Home with Family * ADLs Independent * Equipment None * List name and contact numbers for known caregivers / representatives who currently or will assist patient after discharge: JULY CHANDU - MOTHER- [phone] * Verbal permission to speak to the caregivers and representatives has been obtained from the patient. Yes * Community resources currently utilized None * Additional services required to return to the preadmission environment? No * Can the patient safely return to the preadmission environment? Yes * Has this patient been hospitalized within the prior 30 days at any hospital? No Last DP export: 08/10/18 10:52 a Patient Name: TEREZA SCHOFIELD Page 27135 at 1239 All edits/amendments must be made on the electronic document DICTATION DATE: 08/10/18 1239 HYDROELECTRIC PLANT MECHANICAL ENGINEER: MARTIN 08/10/18 1239 RPT#: [id number] SD DATE: STATUS: ADM IN [facility] [address] [place] [address] END OF REPORT
--- NOTE | 2018-08-10 17:45 | NUR ---
DIALYSIS COORDINATOR: PT ACCEPTED AT [facility] ON MWF @ 2:15 ARRIVAL FOR 2:30 ON TIME. FIRST APT July @ 2:00 FOR PAPERWORK. LUCIAN MORENO
[2018-08-10 20:00] VITALS: BP 167/95
--- NOTE | 2018-08-10 20:12 | NUR ---
ROUNDS COMPLETED. VSS AAOX4. NO S/S OF RR DISTRESS. MOTHER AT BEDSIDE. NO S/S OF RR DISTRESS. PT DENEIS ANY FURTHER NEEDS FOR COMFORT CARE AT THIS TIME. WILL CTM.
[2018-08-11 04:00] VITALS: BP 140/83
[2018-08-11 04:47] LABS: BASOPHILS 0.6 % (0-2); EOSINOPHILS 8.9 % (0-7); HEMOGLOBIN 8.3 g/dL (13.5-17.5); IMMATURE GRANULOCYTES 0.1 % (0-5); LYMPHOCYTES 16.6 % (15-50); MCH 26.9 pg (26.0-34.0); MCHC 33.2 g/dL (31.0-37.0); MCV 81.2 fL (80.0-100.0); MEAN PLATELET VOLUME 10.9 fL (7.4-10.4); MONOCYTES 15.2 % (2-11); NEUTROPHILS 58.6 % (40-80); PLATELET COUNT 188 10x3/uL (130-400); RBC 3.08 10x6/uL (4.20-6.10); RDW 13.1 % (11.5-14.5); WBC 6.9 10x3/uL (4.8-10.8)
[2018-08-11 05:10] LABS: ALBUMIN 2.3 g/dL (3.4-5.0); ANION GAP 15.8 mmol/L (8-16); BILIRUBIN - TOTAL 0.14 mg/dL (0.2-1.3); CALCIUM 7.6 mg/dL (8.5-10.1); CARBON DIOXIDE 26.2 mmol/L (21.0-32.0); PROTEIN - SERUM 5.9 g/dL (6.4-8.2)
[2018-08-11 07:44] VITALS: BP 130/82
[2018-08-11] MEDS ORDERED: FOLIC ACID1 MG PO (10:07)
[2018-08-11] MEDS ORDERED: THERAGRAN M [BK1 TAB PO (10:07)
[2018-08-11] MEDS ORDERED: BUMEX2 MG PO (10:11)
[2018-08-11] MEDS ORDERED: METOPROLOL TART50 MG PO (12:11)
[2018-08-11] MEDS ORDERED: NORVASC10 MG PO (12:11)
--- NOTE | 2018-08-11 13:26 | MORECARE ---
CASE MANAGEMENT DISCHARGE SUMMARY PATIENT: TEREZA SCHOFIELD UNIT: [id number] ADM DATE: 08/01/18 AGE: 32 : 89 SEX: M ROOM/BED: D.2105 AUTHOR: ANGELINA,DOC PHYSICIAN: REFERRING PHYSICIAN: BIGG VILLA MD DATE OF SERVICE: 08/11/18 Discharge Plan Patient Name: TEREZA SCHOFIELD Facility: [facility]:[place] : 1985 Planned Disposition: Home Anticipated Discharge Date: Discharge Date: Expected LOS: Initial Reviewer: [email or web address] Initial Review Date: 08/08/2018 Generated: 08/11/18 2:26 pm Comments DCP- Discharge Planning Updated by [email or web address]: Audra Quevedo on 08/11/18 12:[address] SPOKE WITH LUZ MARIA SANCHES, CLINICAL LIASON WITH [facility]. NOW THAT WE HAVE DISCHARGE ORDERS, THE PATIENT MAY NOT HAVE A DIALYSIS CHAIR. PER LUZ MARIA, SHE RECEIVED A CALL THAT THE PATIENT SOMETHING OR OTHER WAS SHOWING, AND UNTIL IT WAS FIGURED OUT, THEY COULDN'T TAKE HIM. I GAVE HER MED DATA NUMBER, PER HER REQUEST, AND I WILL WAIT TO SEE WHAT THE DETERMINATION IS. GROOVER RUNNER MADE AWARE. I WILL UPDATE THE MD IF THE DETERMINATION IS NEGATIVE. DCP- Discharge Planning Updated by [email or web address]: Audra Quevedo on 08/10/18 11:[address] SPOKE WITH LUZ MARIA SANCHES, DIALYSIS COORDINATOR, AND SHE STATED THAT THE PATIENT HAS BEEN ACCEPTED BY DR ESPINAL OUT OF [place] FOR A -- SCHEDULE WITH A 1400 ARRIVAL TIME FOR 1430 CHAIR TIME AT [facility]. PHONE NUMBER [phone]. PATIENT CAN START ON Tuesday08/14/18. DCP- Discharge Planning Updated by [email or web address]: Audra Quevedo on 08/10/18 10:[address] I HAVE SPOKE WITH LUZ MARIA SANCHES, DAVITA COORDINATOR, TO SEE WHERE WE WERE WITH PLACEMENT WITH THIS PATIENT. REFERRAL IS STILL OUT. WILL CONTINUE TO FOLLOW UP IN REGARDS TO PLACEMENT. DCP- Discharge Planning Updated by [email or web address]: Catarina Herzog on 08/08/18 11:[address] Patient Name: TEREZA SCHOFIELD Admission Status: Elective Accout number: [id number] Admission Date: 08-01-2018 : 1985 Admission Diagnosis:HYPERTENSIVE URGENCY Attending: BIGG VILLA Current LOS: 8 Anticipated DC Date: Planned Disposition: Home Primary Insurance: MEDICAID [place] PENDING Discharge Planning Comments: CM met with patient and his mother(July) at bedside after explaining CM role and obtaining verbal consent. Patient lives at home with his mother July and plans to return there upon discharge. Patient feels this would be a safe discharge. CM discussed availability / needs of home health and medical equipment. Patient has started hemodialysis since admission and will need outpatient hemodialysis set up. Patient is requesting [facility]. Luz Maria Sanches (Patient Sap Bi Architect) is aware of discharge needs. Patient states he will have his mother drive him home upon discharge. CM will continue to follow and assist as needed with discharge planning / needs. Drafting Layout Worker: Catarina Herzog DCPIA - Discharge Planning Initial Assessment Updated by [email or web address]: Catarina Herzog on 08/09/18 12:26 am * Is the patient Alert and Oriented? Yes * How many steps to enter\exit or inside your home? * PCP DEBORAH * Pharmacy [facility] * Preadmission Environment Home with Family * ADLs Independent * Equipment None * List name and contact numbers for known caregivers / representatives who currently or will assist patient after discharge: BRIDGET SCHOFIELD - MOTHER- [phone] * Verbal permission to speak to the caregivers and representatives has been obtained from the patient. Yes * Community resources currently utilized None * Additional services required to return to the preadmission environment? No * Can the patient safely return to the preadmission environment? Yes * Has this patient been hospitalized within the prior 30 days at any hospital? No Last DP export: 08/10/18 11:39 a Patient Name: TEREZA SCHOFIELD Page 85475 at 1326 All edits/amendments must be made on the electronic document DICTATION DATE: 08/11/18 1326 CLINICAL REVIEW NURSE: MARTIN 08/11/18 1326 RPT#: [id number] DC DATE: STATUS: ADM IN [facility] [address] [place] [address] END OF REPORT
--- NOTE | 2018-08-11 14:59 | NUR ---
D/C INSTRUCTIONS GIVEN TO PT, IV REMOVED FROM LEFT FA. PT TAKEN TO CAR VIA WHEELCHAIR.
--- NOTE | 2018-08-14 08:46 | MORECARE ---
CASE MANAGEMENT DISCHARGE SUMMARY PATIENT: TEREZA SCHOFIELD UNIT: [id number] ADM DATE: 08/01/18 AGE: 32 : 89 SEX: M ROOM/BED: D.2106 AUTHOR: ANGELINA,DOC PHYSICIAN: REFERRING PHYSICIAN: BIGG VILLA MD DATE OF SERVICE: 08/14/18 Discharge Plan Patient Name: TEREZA SCHOFIELD Facility: [facility]:[place] : 1985 Planned Disposition: Home Anticipated Discharge Date: Discharge Date: 08/11/2018 Expected LOS: Initial Reviewer: [email or web address] Initial Review Date: 08/08/2018 Generated: 08/14/18 9:45 am Comments DCP- Discharge Planning Updated by [email or web address]: Audra Quevedo on 08/11/18 12:[address] SPOKE WITH LUZ MARIA SANCHES, CLINICAL LIASON WITH [facility]. NOW THAT WE HAVE DISCHARGE ORDERS, THE PATIENT MAY NOT HAVE A DIALYSIS CHAIR. PER LUZ MARIA, SHE RECEIVED A CALL THAT THE PATIENT SOMETHING OR OTHER WAS SHOWING, AND UNTIL IT WAS FIGURED OUT, THEY COULDN'T TAKE HIM. I GAVE HER MED DATA NUMBER, PER HER REQUEST, AND I WILL WAIT TO SEE WHAT THE DETERMINATION IS. METAL GRADER MADE AWARE. I WILL UPDATE THE MD IF THE DETERMINATION IS NEGATIVE. DCP- Discharge Planning Updated by [email or web address]: Audra Quevedo on 08/10/18 11:[address] SPOKE WITH LUZ MARIA SANCHES, DIALYSIS COORDINATOR, AND SHE STATED THAT THE PATIENT HAS BEEN ACCEPTED BY DR ESPINAL OUT OF [place] FOR A -- SCHEDULE WITH A 1400 ARRIVAL TIME FOR [address] [facility]. PHONE NUMBER [phone]. PATIENT CAN START ON Tuesday08/14/18. DCP- Discharge Planning Updated by [email or web address]: Audra Quevedo on 08/10/18 10:[address] I HAVE SPOKE WITH LUZ MARIA SANCHES, DAVITA COORDINATOR, TO SEE WHERE WE WERE WITH PLACEMENT WITH THIS PATIENT. REFERRAL IS STILL OUT. WILL CONTINUE TO FOLLOW UP IN REGARDS TO PLACEMENT. DCP- Discharge Planning Updated by [email or web address]: Catarina Herzog on 08/08/18 11:[address] Patient Name: TEREZA SCHOFIELD Admission Status: Elective Accout number: [id number] Admission Date: 08-01-2018 : 1985 Admission Diagnosis:HYPERTENSIVE URGENCY Attending: BIGG VILLA Current LOS: 8 Anticipated DC Date: Planned Disposition: Home Primary Insurance: MEDICAID [place] PENDING Discharge Planning Comments: CM met with patient and his mother(July) at bedside after explaining CM role and obtaining verbal consent. Patient lives at home with his mother July and plans to return there upon discharge. Patient feels this would be a safe discharge. CM discussed availability / needs of home health and medical equipment. Patient has started hemodialysis since admission and will need outpatient hemodialysis set up. Patient is requesting [place] [facility]. Luz Maria Sanches (Patient System Engineer) is aware of discharge needs. Patient states he will have his mother drive him home upon discharge. CM will continue to follow and assist as needed with discharge planning / needs. Fur Liner: Catarina Herzog DCPIA - Discharge Planning Initial Assessment Updated by [email or web address]: Catarina Herzog on 08/09/18 12:26 am * Is the patient Alert and Oriented? Yes * How many steps to enter\exit or inside your home? * PCP DEBORAH * Pharmacy [facility] * Preadmission Environment Home with Family * ADLs Independent * Equipment None * List name and contact numbers for known caregivers / representatives who currently or will assist patient after discharge: BRIDGET SCHOFIELD - MOTHER- [phone] * Verbal permission to speak to the caregivers and representatives has been obtained from the patient. Yes * Community resources currently utilized None * Additional services required to return to the preadmission environment? No * Can the patient safely return to the preadmission environment? Yes * Has this patient been hospitalized within the prior 30 days at any hospital? No Last DP export: 08/11/18 12:26 p Patient Name: TEREZA SCHOFIELD Page 33795 at 0846 All edits/amendments must be made on the electronic document DICTATION DATE: 08/14/18844 GAS DISPATCHER: MARTIN 08/14/18844 RPT#: [id number] DC DATE:08/11/18 STATUS: DIS IN [place] [id number] [place] [address] END OF REPORT
--- NOTE | 2018-08-30 18:47 | OP ---
PATIENT NAME: TEREZA SCHOFIELD MEDICAL RECORD: [id number] :[birth year] LOCATION:D.M2 D.2105 ADMISSION DATE:08/01/18 SURGEON: ELOY WELSH MD DATE OF OPERATION: 08/09/2018 PREOPERATIVE DIAGNOSIS: End-stage renal disease without chronic access for hemodialysis. POSTOPERATIVE DIAGNOSES: End-stage renal disease without chronic access for hemodialysis. PROCEDURES: 1. Insertion of right internal jugular 19-cm HemoSplit catheter under fluoroscopic guidance. 2. Immediate surgeon interpretation of the fluoroscopic images. SURGEON: Eloy Welsh MD BASE REMOVER: None. BLOOD LOSS: Minimal. ANESTHESIA: General. COMPLICATIONS: None. The risks, possible complications, and alternatives to the procedure were explained to the patient. He elects to proceed. No radiologist was present for this procedure. Static fluoroscopic images were obtained and are kept in the PACS system. The surgeon interpretation of the radiographic images is dictated within the body of this operative note. OPERATIVE COURSE: The patient was conveyed to the operating room electively on 08/09/2018. General anesthesia was induced by the anesthesia staff. The right neck and right chest were sterilely prepped and draped. Under ultrasonographic guidance, I percutaneously accessed the right internal jugular vein in an antegrade fashion. A guidewire was passed easily. A small skin cy was accomplished. A vessel dilator was used to dilate a subcutaneous tract. A counterincision was accomplished in the right anterior superior chest. A 19-cm HemoSplit catheter was tunneled from the chest incision to the neck incision. Over the wire, I dilated with dilator and sheath. The dilator and wire were removed. The tips of the HemoSplit catheter were then advanced. The Peel-Away sheath was then removed. I then pulled back on the flange of the HemoSplit catheter in order to seat the cuff into the subcutaneous tissues. Fluoroscopic image was obtained over the mediastinum. It revealed that the longest HemoSplit catheter tip appeared to be near the cavoatrial junction. Another image was obtained over the right lung apex. It revealed no radiographic evidence of complication. There was no apparent kinking or twisting of the HemoSplit catheter. The neck incision was closed with an interrupted intracuticular 3-0 Vicryl. The flange of the HemoSplit catheter was sutured to the underlying skin with 2-0 nylons. Both lumens were flushed easily and aspirated dark, nonpulsatile blood. OPERATIVE REPORT [id number] TEREZA SCHOFIELD I then flushed both lumens of the HemoSplit catheter with the appropriate amount of concentrated heparin. Sterile dressings were applied. The patient was then extubated and conveyed to the postanesthesia care unit, where he was in stable condition. TRANSINT:[id number] Voice Confirmation ID: [id number] DOCUMENT ID: [id number] ELOY WELSH MD at 1847 CC: [id number] DICTATION DATE: 08/17/18 1453 DICE MAKER: 08/17/181914 DIS IN 08/11/18 [facility] [address] [place] [address]
== END 2018-08-11 14:59 | disposition home or self-care (01) | DRG 291 ==
LOC: D.M2 05:51 → D.CVICU 19:25 → D.M2 19:25 → D.CVICU 08-05 14:48 → D.SDCHOLD 08-08 15:18 → D.CVICU 08-08 15:20 → D.M2 08-08 17:07
PROVIDERS: General Practice; Internal Medicine; Internal Medicine Nephrology; Internal Medicine Pulmonary Disease; Specialist; ADMIT Internal Medicine Nephrology; ATTEND Internal Medicine Nephrology
PROC: 05HM33Z Insertion of Infusion Device into Right Internal Jugular Vein, Percutaneous Approach (ICD-10-PCS; principal; 2018-08-04)
PROC: 0TB03ZX Excision of Right Kidney, Percutaneous Approach, Diagnostic (ICD-10-PCS; 2018-08-08)
PROC: 0JH63XZ Insertion of Tunneled Vascular Access Device into Chest Subcutaneous Tissue and Fascia, Percutaneous Approach (ICD-10-PCS; 2018-08-09)
DX: I13.2 Hypertensive heart and chronic kidney disease with heart failure and with stage 5 chronic kidney disease, or end stage renal disease (principal); J18.9 Pneumonia, unspecified organism; J96.01 Acute respiratory failure with hypoxia; N18.6 End stage renal disease; I50.33 Acute on chronic diastolic (congestive) heart failure; J96.21 Acute and chronic respiratory failure with hypoxia; J81.0 Acute pulmonary edema; N17.9 Acute kidney failure, unspecified; E87.1 Hypo-osmolality and hyponatremia; J81.1 Chronic pulmonary edema; N25.81 Secondary hyperparathyroidism of renal origin; F17.213 Nicotine dependence, cigarettes, with withdrawal; I16.0 Hypertensive urgency; F10.10 Alcohol abuse, uncomplicated; E87.6 Hypokalemia; D50.9 Iron deficiency anemia, unspecified; R80.8 Other proteinuria; R00.0 Tachycardia, unspecified; E79.0 Hyperuricemia without signs of inflammatory arthritis and tophaceous disease